=== PATIENT | female | born 1960 | race Caucasian/White ===

== ENCOUNTER 2017-01-29 11:27 | Emergency (ER) | payer OTHER ==
[~2017-01-29] VITALS: Ht 160 cm; Wt 70.4 kg
[~2017-01-29 11:27] MED LIST: ADULT LOW DOSE81 M1 PO; AMBIEN10 MG PO; AUGMENTIN875 MG PO; BACLOFEN10 MG PO; CARVEDILOL12.5 MG PO; CIPRO500 MG PO; COREG12.5 M1 PO; DECADRON1 MG PO; DILAUDID2 MG PO; ECOTRIN325 MG PO; FIORICET 50-301 EACH PO; FOSAMAX70 MG PO; GABAPENTIN100 MG PO; GEMFIBROZIL600 MG PO; HYDROCODONE-AP1 EAC7 PO; LIDODERM 5% P1 PATCH TD; LISINOPRIL10 MG PO; METHADONE10 MG PO; NAPROSYN500 MG PO; PAXIL40 MG PO; PLAVIX75 MG PO; PROZAC40 MG PO; SIMVASTATIN20 MG PO; SIMVASTATIN40 M1 PO; TRAZODONE HCL50 MG PO; TYLENOL WITH C1 EACH PO; ULTRAM50 MG PO; VALIUM2 MG PO; VALIUM5 MG PO; VENTOLIN HFA18 GM IH; VITAMIN D2000 UNI1 PO; VITAMIN D3400 UNIT PO; ZESTRIL,PRINIVI10 MG PO; ZOCOR80 MG PO
[2017-01-29 12:08] LABS: EOSINOPHIL (%) 0.6 % (0-5); EOSINOPHIL COUNT 0.1 K/uL (0-0.3); HEMATOCRIT 40.2 % (36.0-46.0); IMMATURE GRANULOCYTE (%) 0.2 % (0.0-0.7); INSTRUMENT ABS NEUTROPHIL CT 6.4 K/uL; LYMPHOCYTE COUNT 1.8 K/uL (1.0-2.8); MCHC 34.1 G/DL (30.0-36.0); MEAN PLAT.VOLUME 9.4 uM^3 (9.5-12.4); MONOCYTE (%) 8.3 % (3-12); MONOCYTE COUNT 0.8 K/uL (0-0.8); NEUTROPHIL (%) 70.9 % (45-76); NEUTROPHIL COUNT 6.4 K/uL (1.8-6.4); PLATELET COUNT 361 K/uL (156-360); RBC DIS.WIDTH-CV 13.3 % (11.8-14.6); RBC DIS.WIDTH-SD 44.1 % (39-53); RED BLOOD COUNT 4.42 M/uL (3.80-5.20)
[2017-01-29 12:22] LABS: CHLORIDE 105 mEq/L (99-109); POTASSIUM 3.9 mEq/L (3.7-5.4); SODIUM 139 mEq/L (136-147)
[2017-01-29 12:24] LABS: GLUCOSE 110 mg/dL (70-99)
[2017-01-29 12:25] LABS: ANION GAP 12 MEQ/L (2-14)
[2017-01-29 12:26] LABS: TOTAL BILIRUBIN 0.4 mg/dL (0.0-1.0)
[2017-01-29 12:27] LABS: ALKALINE PHOSPHATASE 69 IU/L (3-129)
[2017-01-29 12:28] LABS: GFR ESTIMATE (CALCULATED) 50 mL/min/
[2017-01-29 12:29] LABS: UREA NITROGEN (BUN) 10 mg/dL (9-23)
[2017-01-29 12:31] LABS: LIPASE 40 U/L (1.0-51.0)
[2017-01-29 13:38] LABS: ADD MIUA? NO; BILIRUBIN NEGATIVE; BLOOD NEGATIVE; COLOR YELLOW ((YELLOW)); GLUCOSE (STRIP) NEGATIVE; KETONES NEGATIVE; LEUKOCYTES NEGATIVE; NITRITE NEGATIVE; PROTEIN (STRIP) NEGATIVE; UROBILINOGEN 0.2 MG/DL (0.2-1.0)
[2017-01-29] MEDS ORDERED: IMODIUM MS REL1 EACH PO (13:57)
[2017-01-29] MEDS ORDERED: BENTYL20 MG PO (13:57)
[2017-01-29] MEDS ORDERED: ZOFRAN ODT4 MG PO (13:57)
[2017-01-29 14:22] LABS: SPECIFIC GRAVITY 1.072 (1.000-1.030)
[2017-01-29 14:35] VITALS: BP 112/78
== END 2017-01-29 14:37 | disposition home or self-care (01) ==
LOC: EME 11:27
PROVIDERS: Emergency Medicine
DX: R10.9 Unspecified abdominal pain (principal); R11.10 Vomiting, unspecified; R19.7 Diarrhea, unspecified; G89.29 Other chronic pain; M79.7 Fibromyalgia; I25.2 Old myocardial infarction; Z86.73 Personal history of transient ischemic attack (TIA), and cerebral infarction without residual deficits; Z87.891 Personal history of nicotine dependence
CPT/HCPCS: 74177; 80053; 81003; 83690; 85025; 93005; 99281; 99285; J2405; J3010; J7030